=== PATIENT | female | born 1940 | race American Indian/Alaskan Native ===

== ENCOUNTER 2016-07-08 12:33 | Emergency (ER) | payer OTHER, MEDICAID ==
[2016-07-08 13:44] VITALS: BP 158/94
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
--- NOTE | 2016-07-09 09:34 | XRay Report ---
LEFT KNEE, 2 VIEWS: HISTORY: Left knee pain. FINDINGS: Early osteoarthritic changes are identified in all 3 compartments. There is normal bone mineralization. No fracture, osteochondral defect or large joint effusion. IMPRESSION: Mild degenerative changes.
== END 2016-07-08 22:40 | disposition home or self-care (01) ==
LOC: ED 12:33
DX: S06.0X1A Concussion with loss of consciousness of 30 minutes or less, initial encounter (principal); S13.4XXA Sprain of ligaments of cervical spine, initial encounter; S83.8X2A Sprain of other specified parts of left knee, initial encounter; V49.59XA Passenger injured in collision with other motor vehicles in traffic accident, initial encounter; X58.XXXA Exposure to other specified factors, initial encounter; Y93.9 Activity, unspecified; Y92.9 Unspecified place or not applicable; Y99.9 Unspecified external cause status
CPT/HCPCS: 70450; 72125